=== PATIENT | female | born 1995 | race Caucasian/White ===

== ENCOUNTER 2019-02-13 15:36 | Emergency (ER) | payer MEDICAID, OTHER ==
[~2019-02-13] VITALS: Ht 149.9 cm; Wt 56.7 kg
[2019-02-13 15:47] VITALS: BP_SYST 121
--- NOTE | 2019-02-13 16:25 | NUR ---
Patient to ER [place] [facility] to [facility] for evaluation. Side rails up. Report given to Delma BLANCHARD.
--- NOTE | 2019-02-13 16:32 | NUR ---
Meseret SIGN ERECTOR at bedside examining patient.
--- NOTE | 2019-02-13 16:35 | NUR ---
Patient is awake, alert, and oriented x4. Patient presents with abcess to right thigh x3 days. Patient reports aching pain 6/10.
[2019-02-13] MEDS ORDERED: SULFAMETHOXAZOLE/TRIMETHOPR DS 1 TABLET PO ONE (16:45)
[2019-02-13] MEDS ORDERED: LIDOCAINE/EPI 2% 1:100000 20 ML VIAL INJ ONE (16:45)
[2019-02-13] MEDS ORDERED: IBUPROFEN 800 MG TABLET PO ONE (16:45)
[2019-02-13] MEDS ORDERED: SODIUM BICARBONATE 8.4% VIAL 50 MEQ/50 ML VIAL INJ ONE (16:45)
[2019-02-13] MEDS ORDERED: CEPHALEXIN 500 MG CAPSULE PO ONE (16:45)
--- NOTE | 2019-02-13 17:00 | NUR ---
ANDREW Carl at bedside to perform procedure.
[2019-02-13 17:54] VITALS: BP_SYST 118
--- NOTE | 2019-02-13 17:54 | NUR ---
Patient given written and verbal discharge instructions and verbalizes understanding. ER MD discussed with patient the results and treatment provided. Patient in stable condition. ID arm band removed. Rx of keflex, motrin, bactrim ds given. Patient educated on pain management and to follow up with PMD. Pain Scale 0/10. Opportunity for questions provided and answered. Medication side effect fact sheet provided.
== END 2019-02-13 17:54 | disposition home or self-care (01) ==
LOC: SED 15:36
DX: L02.415 Cutaneous abscess of right lower limb (principal); F17.210 Nicotine dependence, cigarettes, uncomplicated; R03.0 Elevated blood-pressure reading, without diagnosis of hypertension; F15.90 Other stimulant use, unspecified, uncomplicated
CPT/HCPCS: 99284

== ENCOUNTER 2019-03-02 01:43 | Emergency (ER) | payer OTHER ==
[~2019-03-02] VITALS: Ht 149.9 cm; Wt 56.7 kg
[2019-03-02 01:45] VITALS: BP_SYST 126
--- NOTE | 2019-03-02 01:45 | NUR ---
Patient to ER bed 7 to gown for evaluation. Side rails up.
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
--- NOTE | 2019-03-02 02:05 | NUR ---
JERMAINE Ortega at bedside examining patient.
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
--- NOTE | 2019-03-02 03:00 | NUR ---
Pt resting comfortably in bed no signs of acute distress. Will cont. to monitor.
[2019-03-02 04:23] VITALS: BP_SYST 126
--- NOTE | 2019-03-02 04:23 | NUR ---
Patient given written and verbal discharge instructions and verbalizes understanding. ER MD Dr. Silva discussed with patient the results and treatment provided. Patient in stable condition. ID arm band removed. Patient educated on pain management and to follow up with PMD. Pain Scale 0/10. Opportunity for questions provided and answered. Medication side effect fact sheet provided.
== END 2019-03-02 04:23 | disposition home or self-care (01) ==
LOC: SED 01:43
DX: S09.90XA Unspecified injury of head, initial encounter (principal); V43.92XA Unspecified car occupant injured in collision with other type car in traffic accident, initial encounter; Y93.89 Activity, other specified; Y92.410 Unspecified street and highway as the place of occurrence of the external cause; Y99.8 Other external cause status
CPT/HCPCS: 81025; 99282

== ENCOUNTER 2019-11-07 03:46 | Emergency (ER) | payer OTHER ==
[~2019-11-07] VITALS: Ht 149.9 cm; Wt 54.4 kg
[2019-11-07 04:00] VITALS: BP_SYST 125
--- NOTE | 2019-11-07 04:00 | NUR ---
PATIENT COMPLAINS OF PIMPLE ON LEFT SIDE BACK OF THE NECK THAT STARTED ABOUT THREE DAYS AGO AND HAS CONTINUED TO GROW AND BECOME TENDER. PT REPORTS PUTTING A WARM COMPRESS ON IT YESTERDAY TO TRY TO POP IT AND YELLOW PUS CAME OUT. PT STATES IT IS TENDER AT A 4 OUT OF 10. AREA ON BACK OF NECK APPEARS TO BE SWOLLEN, RED, AND TENDER TO THE TOUCH. PT DENIES TAKING ANY MEDICATIONS FOR PAIN. PT DOES NOT STATE ANY OTHER MEDICAL COMPLAINTS AT THIS TIME.
--- NOTE | 2019-11-07 04:00 | NUR ---
Patient to ER bed 7 to gown for evaluation. Side rails up.
--- NOTE | 2019-11-07 04:24 | NUR ---
JERMAINE GARCIA at bedside examining patient.
[2019-11-07] MEDS ORDERED: SULFAMETHOXAZOLE/TRIMETHOPR DS 1 TABLET PO ONE (04:30)
--- NOTE | 2019-11-07 04:30 | NUR ---
DR. GARCIA AT BEDSIDE PERFORMING DRAINAGE OF ABSCESS. YELLOW/GREEN PUS DRAINAGE NOTED.
[2019-11-07] MEDS ORDERED: LIDOCAINE 1%, 20 ML MDV 20 ML ONE (04:40)
[2019-11-07 04:45] VITALS: BP_SYST 125
[2019-11-07] MEDS ORDERED: BACITRACIN 1 GM OINT TP ONE ×2 (04:45→04:55)
[2019-11-07] MEDS ORDERED: LIDOCAINE 1% 10 MG/ML, 20 ML MDV INJ ONE (04:45)
--- NOTE | 2019-11-07 04:45 | NUR ---
Patient given written and verbal discharge instructions and verbalizes understanding. ER MD discussed with patient the results and treatment provided. Patient in stable condition. ID arm band removed. Rx of Bactrim given. Patient educated on pain management and to follow up with PMD. Pain Scale 4/10. Opportunity for questions provided and answered. Medication side effect fact sheet provided.
== END 2019-11-07 04:45 | disposition home or self-care (01) ==
LOC: SED 03:46
DX: L02.11 Cutaneous abscess of neck (principal)
CPT/HCPCS: 10060; 99283; J2001